=== PATIENT | female | born 1995 | race Caucasian/White ===

== ENCOUNTER → 2017-03-20 | Outpatient (CLI) | payer BC ==
[~2017-03-20] MED LIST: CLARITHROMYCIN; CLIN300C3 PO; PRD20T PO; SOLODYN; [UNRECOGNIZED DRUG - OTHER]
--- NOTE | 2017-03-20 10:10 | Diagnostic Imaging Report ---
PROCEDURE: US Gallbladder. TECHNIQUE: Multiple Real-time grayscale images were obtained over the right upper quadrant in various projections. INDICATION: Right upper quadrant pain. COMPARISON: None. FINDINGS: The liver appears unremarkable. There is no biliary dilatation. The common bile duct measures about 4 mm. The gallbladder appears unremarkable. The pancreas is not well seen. The right kidney measures 10 cm in length and appears normal. There is no ascites or sonographic Goss's sign. IMPRESSION: No acute abnormality is seen. The pancreas is not well visualized. Dictated by: Dictated on workstation # [id number]
--- NOTE | 2017-03-20 10:12 | Diagnostic Imaging Report ---
PROCEDURE: US Thyroid. TECHNIQUE: Multiple Real-time grayscale images were obtained of the thyroid in various projections. INDICATION: Thyromegaly. COMPARISON: None. FINDINGS: The right lobe measures 4.3 cm x 1.2 cm x 1.6 cm and the left lobe measures 3.6 cm x 1.3 cm x 1.5 cm. The thyroid gland appears fairly homogenous. No focal nodules are seen. IMPRESSION: Unremarkable thyroid sonogram. Dictated by: Dictated on workstation # [id number]
== END ==
LOC: RAD 08:14
PROVIDERS: ATTEND Nurse Practitioner Family
DX: E01.0 Iodine-deficiency related diffuse (endemic) goiter (principal); R10.11 Right upper quadrant pain
CPT/HCPCS: 76536; 76705

== ENCOUNTER → 2017-04-04 | Outpatient (CLI) | payer BC ==
[~2017-04-04] MED LIST changes: +CATHETER FLUSH 10 ML SYR IV PRN
--- NOTE | 2017-04-04 15:00 | Diagnostic Imaging Report ---
EXAMINATION: HIDA with EF measurements Indication: Abdominal pain TECHNIQUE: After the intravenous administration of 5.4 mCi of Tc 99m Choletec, imaging over the abdomen was obtained. This was followed by administration of Ensure orally to stimulate intrinsic CCK secretion, followed by continued imaging with ejection fraction measured. FINDINGS: There is homogeneous uptake in the liver with prompt bile duct and gallbladder filling seen. Bowel activity is seen at 65 minutes. Based on further imaging and gallbladder area of interest activity measurements after the administration of Ensure, the gallbladder ejection fraction is estimated at 57%. IMPRESSION: 1. Normal hepatobiliary uptake and Gallbladder filling. 2. Normal gallbladder ejection fraction. Dictated by: Dictated on workstation # [id number]
== END ==
LOC: CARD 12:02
PROVIDERS: ATTEND Nurse Practitioner Family
DX: R10.11 Right upper quadrant pain (principal)
CPT/HCPCS: 78227

== ENCOUNTER 2018-10-07 17:37 | Emergency (ER) | payer BC ==
[~2018-10-07] VITALS: Ht 162.6 cm; Wt 111.1 kg
[~2018-10-07 17:37] MED LIST changes: -CATHETER FLUSH 10 ML SYR IV PRN
--- OUTSIDE RECORDS SUMMARY | 2018-10-07 17:43 | XMS REPORT | Clinical Summary ---
Author Author [facility] Organization [facility] Address Unknown Phone Unavailable Care Team Providers Care Biomass Production Manager Name Role Phone Unverified, Unverified Md PCP Unavailable Source Comments Some departments are not documenting in the electronic medical record. If you d o not see the information that you expected, contact Release of Information in Count includes the [facility] Information Management department at [phone] for further assistan ce in locating additional records.[facility] Allergies Not on File Medications Not on file Active Problems Not on file Social History Date Tobacco Use Types Packs/Day Years Used Never Assessed Sex Assigned at Date Recorded Not on file Industry Job Start Date Occupation Not on file Not on file Not on file Travel End Travel History Travel Start No recent travel history available. Last Filed Vital Signs Not on file Plan of Treatment Health Maintenance Due Date Last Done Comments PHYSICAL (COMPREHENSIVE) 2004 EXAM HIV SCREENING 2012 HPV VACCINES (1 - Female 2012 3-dose series) DTAP/TDAP VACCINES (1 - 08/10/2015 Tdap) CERVICAL CANCER SCREENING 2018 INFLUENZA VACCINE 01/20/2019 MENINGOCOCCAL VACCINE Aged Out No longer eligible based (Odalys ENRIQUEZ) on patient's age to complete this topic Results Not on filefrom Last 3 Months
--- OUTSIDE RECORDS SUMMARY | 2018-10-07 17:43 | XMS REPORT | Continuity of Care Document ---
Author Organization Unknown Address Unknown Allergies Active Description Code Type Severity Reaction Onset Reported/Identified Relationship to Patient Clinical Status Yes No Known Drug Allergies [id number] Drug Allergy Unknown N/A 03/18/2007 Medications There is no data. Problems Date Dx Coded Attending Type Code Diagnosis Diagnosed By 04/07/2010 Ot 078.12 PLANTAR WART 09/25/2010 Ot 842.10 SPRAIN OF HAND NOS 09/25/2010 Ot 959.5 FINGER INJURY NOS 09/25/2010 Ot E000.8 OTHER EXTERNAL CAUSE STATUS 09/25/2010 Ot E007.3 ACTIVITIES INVOLVING BASEBALL 09/25/2010 Ot E849.4 ACCID IN RECREATION AREA 09/25/2010 Ot E917.0 STRUCK IN SPORTS 03/14/2013 NARCISA LEAL MD Ot 786.09 RESPIRATORY ABNORM NEC 03/14/2013 NARCISA LEAL MD Ot 786.50 CHEST PAIN NOS 03/14/2013 NARCISA LEAL MD Ot E849.0 ACCIDENT IN HOME 03/14/2013 NARCISA LEAL MD Ot E930.8 ADV EFF ANTIBIOTICS NEC 04/02/2014 SARBJIT FRIED MD Ot 784.0 04/26/2014 SARBJIT FRIED MD Ot 784.0 03/04/2015 Ot 784.0 03/04/2015 Ot 959.7 03/04/2015 Ot E000.8 03/04/2015 Ot E007.9 03/04/2015 Ot E928.9 03/04/2015 SARBJIT FRIED MD Ot 625.3 03/04/2015 SARBJIT FRIED MD Ot 625.3 03/04/2015 V[place] PEREIRA Ot 789.00 03/04/2015 SARBJIT FRIED MD Ot 796.2 03/04/2015 SARBJIT FRIED MD Ot 784.0 03/29/2015 Ot 784.0 03/29/2015 Ot 959.7 03/29/2015 Ot E000.8 03/29/2015 Ot E007.9 03/29/2015 Ot E928.9 03/29/2015 SARBJIT FRIED MD Ot 625.3 03/29/2015 SARBJIT FRIED MD Ot 625.3 03/29/2015 [place] PEREIRAP Ot 789.00 03/29/2015 SARBJIT FRIED MD Ot 796.2 03/29/2015 SARBJIT FRIED MD Ot 784.0 06/09/2015 SRABJIT FRIED MD Ot E28.2 06/20/2015 SARBJIT FRIED MD Ot E28.2 07/01/2015 Ot 959.7 07/01/2015 Ot E000.8 07/01/2015 Ot E007.9 07/01/2015 Ot E928.9 07/01/2015 SARBJIT FRIED MD Ot 625.3 07/01/2015 SARBJIT FRIED MD Ot 625.3 07/01/2015 V[place] PEREIRAP Ot 789.00 07/01/2015 SARBJIT FRIED MD Ot 796.2 07/01/2015 SARBJIT FRIED MD Ot 784.0 07/01/2015 SARBJIT FRIED MD Ot E28.2 08/08/2015 Ot 959.7 LOWER LEG INJURY NOS 08/08/2015 Ot E000.8 OTHER EXTERNAL CAUSE STATUS 08/08/2015 Ot E007.9 OTH ACT INVG OTH SPORTS ATHLETES PLAYE 08/08/2015 Ot E928.9 ACCIDENT NOS 08/08/2015 SARBJIT FRIED MD Ot 625.3 DYSMENORRHEA 08/08/2015 SARBJIT FRIED MD Ot 625.3 DYSMENORRHEA 08/08/2015 V[place] PEREIRAP Ot 789.00 ABDOMINAL PAIN, UNSPECIFIED SITE 08/08/2015 SARBJIT FRIED MD Ot 796.2 ELEV BL PRES W/O HYPERTN 08/08/2015 SARBJIT FRIED MD Ot 784.0 HEADACHE 08/08/2015 SARBJIT FRIED MD Ot E28.2 POLYCYSTIC OVARIAN SYNDROME 10/10/2015 Ot 959.7 LOWER LEG INJURY NOS 10/10/2015 Ot E000.8 OTHER EXTERNAL CAUSE STATUS 10/10/2015 Ot E007.9 OTH ACT INVG OTH SPORTS ATHLETES PLAYE 10/10/2015 Ot E928.9 ACCIDENT NOS 10/10/2015 SARBJIT FRIED MD Ot 625.3 DYSMENORRHEA 10/10/2015 SARBJIT FRIED MD Ot 625.3 DYSMENORRHEA 10/10/2015 SIAVRIGINIA Veloz K GRINDING MACHINE OPERATOR Ot 789.00 ABDOMINAL PAIN, UNSPECIFIED SITE 10/10/2015 SARBJIT FRIED MD Ot 796.2 ELEV BL PRES W/O HYPERTN 10/10/2015 SARBJIT FRIED MD Ot 784.0 HEADACHE 10/10/2015 SARBJIT FRIED MD Ot E28.2 POLYCYSTIC OVARIAN SYNDROME 01/24/2016 Ot 959.7 LOWER LEG INJURY NOS 01/24/2016 Ot E000.8 OTHER EXTERNAL CAUSE STATUS 01/24/2016 Ot E007.9 OTH ACT INVG OTH SPORTS ATHLETES PLAYE 01/24/2016 Ot E928.9 ACCIDENT NOS 01/24/2016 SARBJIT FRIED MD Ot 625.3 DYSMENORRHEA 01/24/2016 SARBJIT FRIED MD Ot 625.3 DYSMENORRHEA 01/24/2016 SIAVIRGINIA Veloz K GRINDING MACHINE OPERATOR Ot 789.00 ABDOMINAL PAIN, UNSPECIFIED SITE 01/24/2016 SARBJIT FRIED MD Ot 796.2 ELEV BL PRES W/O HYPERTN 01/24/2016 SARBJIT FRIED MD Ot 784.0 HEADACHE 01/24/2016 SARBJIT FRIED MD Ot E28.2 POLYCYSTIC OVARIAN SYNDROME 02/21/2016 Ot 486 06/20/2016 Ot 486 06/26/2016 Ot 959.7 LOWER LEG INJURY NOS 06/26/2016 Ot E000.8 OTHER EXTERNAL CAUSE STATUS 06/26/2016 Ot E007.9 OTH ACT INVG OTH SPORTS ATHLETES PLAYE 06/26/2016 Ot E928.9 ACCIDENT NOS 06/26/2016 SARBJIT FRIED MD Ot 625.3 DYSMENORRHEA 06/26/2016 SARBJIT FRIED MD Ot 625.3 DYSMENORRHEA 06/26/2016 SIAVIRGINIA Veloz K GRINDING MACHINE OPERATOR Ot 789.00 ABDOMINAL PAIN, UNSPECIFIED SITE 06/26/2016 SARBJIT FRIED MD Ot 796.2 ELEV BL PRES W/O HYPERTN 06/26/2016 SARBJIT FRIED MD Ot 784.0 HEADACHE 06/26/2016 SARBJIT FRIED MD Ot E28.2 POLYCYSTIC OVARIAN SYNDROME 06/26/2016 Ot 959.7 LOWER LEG INJURY NOS 06/26/2016 Ot E000.8 OTHER EXTERNAL CAUSE STATUS 06/26/2016 Ot E007.9 OTH ACT INVG [employer] SPORTS ATHLETES PLAYE 06/26/2016 Ot E928.9 ACCIDENT NOS 06/26/2016 SARBJIT FRIED MD Ot 625.3 DYSMENORRHEA 06/26/2016 SARBJIT FRIED MD Ot 625.3 DYSMENORRHEA 06/26/2016 SIAVIRGINIA Veloz K GRINDING MACHINE OPERATOR Ot 789.00 ABDOMINAL PAIN, UNSPECIFIED SITE 06/26/2016 SARBJIT FRIED MD Ot 796.2 ELEV BL PRES W/O HYPERTN 06/26/2016 SARBJIT FRIED MD Ot 784.0 HEADACHE 06/26/2016 SARBJIT FRIED MD Ot E28.2 POLYCYSTIC OVARIAN SYNDROME 07/21/2016 Ot 959.7 LOWER LEG INJURY NOS 07/21/2016 Ot E000.8 OTHER EXTERNAL CAUSE STATUS 07/21/2016 Ot E007.9 OTH ACT INVG [employer] SPORTS ATHLETES PLAYE 07/21/2016 Ot E928.9 ACCIDENT NOS 07/21/2016 SARBJIT FRIED MD Ot 625.3 DYSMENORRHEA 07/21/2016 SARBJIT FRIED MD Ot 625.3 DYSMENORRHEA 07/21/2016 SIAVIRGINIA Veloz K GRINDING MACHINE OPERATOR Ot 789.00 ABDOMINAL PAIN, UNSPECIFIED SITE 07/21/2016 SARBJIT FRIED MD Ot 796.2 ELEV BL PRES W/O HYPERTN 07/21/2016 SARBJIT FRIED MD Ot 784.0 HEADACHE 07/21/2016 SARBJIT FRIED MD Ot E28.2 POLYCYSTIC OVARIAN SYNDROME 10/03/2016 SARBJIT FRIED MD Ot E28.2 POLYCYSTIC OVARIAN SYNDROME 10/09/2016 Ot 959.7 LOWER LEG INJURY NOS 10/09/2016 Ot E000.8 OTHER EXTERNAL CAUSE STATUS 10/09/2016 Ot E007.9 OTH ACT INVG OT SPORTS ATHLETES PLAYE 10/09/2016 Ot E928.9 ACCIDENT NOS 10/09/2016 SARBJIT FRIED MD Ot 625.3 DYSMENORRHEA 10/09/2016 SARBJIT FRIED MD Ot 625.3 DYSMENORRHEA 10/09/2016 SIAVIRGINIA Veloz GRINDING MACHINE OPERATOR Ot 789.00 ABDOMINAL PAIN, UNSPECIFIED SITE 10/09/2016 SARBJIT FRIED MD Ot 796.2 ELEV BL PRES W/O HYPERTN 10/09/2016 SARBJIT FRIED MD Ot 784.0 HEADACHE 10/09/2016 SARBJIT FRIED MD Ot E28.2 POLYCYSTIC OVARIAN SYNDROME 10/09/2016 Ot 959.7 LOWER LEG INJURY NOS 10/09/2016 Ot E000.8 OTHER EXTERNAL CAUSE STATUS 10/09/2016 Ot E007.9 OTH ACT INVG OT SPORTS ATHLETES PLAYE 10/09/2016 Ot E928.9 ACCIDENT NOS 10/09/2016 SARBJIT FRIED MD Ot 625.3 DYSMENORRHEA 10/09/2016 SARBJIT FRIED MD Ot 625.3 DYSMENORRHEA 10/09/2016 VIRGINIA PEREIRA GRINDING MACHINE OPERATOR Ot 789.00 ABDOMINAL PAIN, UNSPECIFIED SITE 10/09/2016 SARBJIT FRIED MD Ot 796.2 ELEV BL PRES W/O HYPERTN 10/09/2016 SARBJIT FRIED MD Ot 784.0 HEADACHE 10/09/2016 SARBJIT FRIED MD Ot E28.2 POLYCYSTIC OVARIAN SYNDROME 12/13/2016 SARBJIT FRIED MD Ot E28.2 POLYCYSTIC OVARIAN SYNDROME 12/19/2016 SARBJIT FRIED MD Ot E28.2 POLYCYSTIC OVARIAN SYNDROME 01/23/2017 Ot 959.7 LOWER LEG INJURY NOS 01/23/2017 Ot E000.8 OTHER EXTERNAL CAUSE STATUS 01/23/2017 Ot E007.9 OTH ACT INVG OTH SPORTS ATHLETES PLAYE 01/23/2017 Ot E928.9 ACCIDENT NOS 01/23/2017 SARBJIT FRIED MD Ot 625.3 DYSMENORRHEA 01/23/2017 SARBJIT FRIED MD Ot 625.3 DYSMENORRHEA 01/23/2017 VIRGINIA PEREIRA K GRINDING MACHINE OPERATOR Ot 789.00 ABDOMINAL PAIN, UNSPECIFIED SITE 01/23/2017 SARBJIT FRIED MD Ot 796.2 ELEV BL PRES W/O HYPERTN 01/23/2017 SARBJIT FRIED MD Ot 784.0 HEADACHE 01/23/2017 SARBJIT FRIED MD Ot E28.2 POLYCYSTIC OVARIAN SYNDROME 03/20/2017 SARBJIT FRIED MD Ot E28.2 POLYCYSTIC OVARIAN SYNDROME 03/25/2017 SARBJIT FRIED MD Ot E28.2 POLYCYSTIC OVARIAN SYNDROME 03/25/2017 KUMAR, GUILHERME L GRINDING MACHINE OPERATOR Ot E01.0 IODINE-DEFICIENCY RELATED DIFFUSE (ENDEM 03/25/2017 KUMAR, GUILHERME L GRINDING MACHINE OPERATOR Ot R10.11 RIGHT UPPER QUADRANT PAIN 04/05/2017 KUMAR, GUILHERME L GRINDING MACHINE OPERATOR Ot E01.0 IODINE-DEFICIENCY RELATED DIFFUSE (ENDEM 04/05/2017 KUMAR, GUILHERME L GRINDING MACHINE OPERATOR Ot R10.11 RIGHT UPPER QUADRANT PAIN 04/07/2017 KUMAR, GUILHERME L GRINDING MACHINE OPERATOR Ot R10.11 RIGHT UPPER QUADRANT PAIN 04/10/2017 KUMAR, GUILHERME L GRINDING MACHINE OPERATOR Ot R10.11 RIGHT UPPER QUADRANT PAIN 04/18/2017 KUMAR, GUILHERME L GRINDING MACHINE OPERATOR Ot R10.11 RIGHT UPPER QUADRANT PAIN 04/22/2017 Ot 486 07/06/2017 SARBJIT FRIED MD Ot 625.3 DYSMENORRHEA 07/06/2017 SARBJIT FRIED MD Ot 625.3 DYSMENORRHEA 07/06/2017 VIRGINIA PEREIRA K GRINDING MACHINE OPERATOR Ot 789.00 ABDOMINAL PAIN, UNSPECIFIED SITE 07/06/2017 SARBJIT FRIED MD Ot 796.2 ELEV BL PRES W/O HYPERTN 07/06/2017 SARBJIT FRIED MD Ot 784.0 HEADACHE 07/06/2017 SARBJIT FRIED MD Ot E28.2 POLYCYSTIC OVARIAN SYNDROME 09/20/2017 Ot 486 10/07/2017 SARBJIT FRIED MD Ot 625.3 DYSMENORRHEA 10/07/2017 SARBJIT FIRED MD Ot 625.3 DYSMENORRHEA 10/07/2017 SIAM, VIRGINIA K GRINDING MACHINE OPERATOR Ot 789.00 ABDOMINAL PAIN, UNSPECIFIED SITE 10/07/2017 SARBJIT FIRED MD Ot 796.2 ELEV BL PRES W/O HYPERTN 10/07/2017 SARBJIT FRIED MD Ot 784.0 HEADACHE 10/07/2017 SARBJIT FRIED MD Ot E28.2 POLYCYSTIC OVARIAN SYNDROME 10/15/2017 SARBJIT FRIED MD Ot 625.3 DYSMENORRHEA 10/15/2017 SARBJIT FRIED MD Ot 625.3 DYSMENORRHEA 10/15/2017 SIAM, VIRGINIA K GRINDING MACHINE OPERATOR Ot 789.00 ABDOMINAL PAIN, UNSPECIFIED SITE 10/15/2017 SARBJIT FRIED MD Ot 796.2 ELEV BL PRES W/O HYPERTN 10/15/2017 SARBJIT FRIED MD Ot 784.0 HEADACHE 10/15/2017 SARBJIT FRIED MD Ot E28.2 POLYCYSTIC OVARIAN SYNDROME 08/26/2018 SIAM, VIRGINIA K GRINDING MACHINE OPERATOR Ot 789.00 ABDOMINAL PAIN, UNSPECIFIED SITE 08/26/2018 SARBJIT FRIED MD Ot 796.2 ELEV BL PRES W/O HYPERTN 08/26/2018 SARBJIT FRIED MD Ot 784.0 HEADACHE 08/26/2018 SARBJIT FRIED MD Ot E28.2 POLYCYSTIC OVARIAN SYNDROME Procedures There is no data. Results There is no data. Encounters ACCT No. Visit Date/Time Discharge Status Pt. Type Provider Facility Loc./Unit Complaint [id number] 04/04/2017 12:02:00 04/04/2017 23:59:59 [facility] Outpatient GUILHERME KUMAR GRINDING MACHINE OPERATOR [facility] CARD PUQ PAIN [id number] 03/20/2017 08:14:00 03/20/2017 23:59:59 C[facility] Outpatient GUILHERME KUMAR GRINDING MACHINE OPERATOR [facility] RAD THYROMEGALY,RUQ PAIN [id number] 06/02/2015 10:21:00 06/02/2015 23:59:59 CLS Outpatient SARBJIT FRIED MD [facility] RAD POLYCYSTIC OVARIES [id number] 05/26/2015 10:27:00 05/26/2015 23:59:59 CLS Outpatient SARBJIT FRIED MD [facility] LAB POLYCYSTIC OVA [id number] 04/01/2014 12:27:00 04/01/2014 23:59:59 CLS Outpatient SARBJIT FRIED MD [facility] RAD SEVERE HEADACHES [id number] 12/03/2013 07:00:00 12/03/2013 23:59:59 CLS Outpatient SARBJIT FRIED MD [facility] CARD BORDERLINE HIGH BLOOD PRESSURE [id number] 06/29/2013 14:42:00 06/29/2013 23:59:59 CLS Outpatient SIAMVIGRINIA K GRINDING MACHINE OPERATOR [facility] LAB ABD PAIN [id number] 03/14/2013 01:27:00 03/14/2013 02:30:00 DIS Emergency NARCISA LEAL MD [facility] ER CHEST PAIN,SOA [id number] 02/10/2013 10:30:00 02/10/2013 23:59:59 CLS Outpatient SARBJIT FRIED MD [facility] RAD DYSMENNOREHA [id number] 02/09/2013 15:47:00 02/09/2013 23:59:59 CLS Outpatient SARBJIT FRIED MD [facility] LAB DISMENORRHEA [id number] 03/04/2015 06:11:00 Document Registration [id number] 08/21/2011 10:42:00 Document Registration [id number] 09/25/2010 21:43:00 Document Registration [id number] 04/07/2010 06:45:00 Document Registration [id number] 01/04/2010 17:24:00 Document Registration [id number] 03/17/2007 09:00:00 Document Registration
--- OUTSIDE RECORDS SUMMARY | 2018-10-07 17:43 | XMS REPORT | Encounter Summary ---
Author Author [facility] Organization [facility] Address Unknown Phone Unavailable Care Team Providers Care Mobile Nurse Name Role Phone Unverified, Unverified PCP Unavailable Encounter Details Care Team Description Date Type Department Marcy Sauceda MD [address] [place] [id number] [phone] 12/30/2007 [facility] [address] [address] Social History Date Tobacco Use Types Packs/Day Years Used Never Assessed Sex Assigned at Date Recorded Not on file Industry Job Start Date Occupation Not on file Not on file Not on file Travel End Travel History Travel Start No recent travel history available. 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 IGG/IGM 12:16 PM CDT THYROGLOBULIN AB 12/30/2007 Idiopathic Urticaria 12:16 PM CDT CARDIOLIPIN AB IGG/IGM 12/30/2007 Idiopathic Urticaria 12:16 PM CDT ANTI-THYROPEROXIDASE 12/30/2007 Idiopathic Urticaria (MICROSOMAL)AB 12:16 PM CDT DILUTE [place] VIPER 12/30/2007 Idiopathic Urticaria VENOM 12:16 PM CDT COMPLEMENT, TOTAL (CH50) 12/30/2007 Idiopathic Urticaria 12:16 PM CDT C4 COMPLEMENT 4 12/30/2007 Idiopathic Urticaria 12:16 PM CDT ALT (SGPT) 12/30/2007 Idiopathic Urticaria 12:16 PM CDT THYROID STIMULATING 12/30/2007 Idiopathic Urticaria HORMONE-TSH 12:16 PM CDT FREE T4 (FREE THYROXINE) 12/30/2007 Idiopathic Urticaria ONLY 12:16 PM CDT documented in this encounter Results * THYROID STIMULATING HORMONE-TSH (12/30/2007 12:16 PM CDT) TSH 2.467 0.35 - 5.00 MCU/ML [facility] RESULTS Specimen Performing Organization Address [facility] Phone Number [facility] RESULTS * MYCOPLASMA PNEUMONIA IGG/IGM (12/30/2007 12:16 PM CDT) M Pneumo IgG 4.80 [facility] RESULTS Comment: Reference range: <=0.90 Unit: Index [facility], [address] [place], [place] [id number] M Pneumo IgM 3.58 (H) [facility] RESULTS Comment: Reference range: <=0.90 Unit: Index Results suggest recent infection but should be interpreted in the context of the clinical presentation. [facility], [address] [place] [id number] Specimen Performing Organization Address [facility] Phone Number [facility] RESULTS * FREE T4 (FREE THYROXINE) ONLY (12/30/2007 12:16 PM CDT) T4-Free 0.9Comment: NOTE NEW REFERENCE 0.6 - 1.6 NG/DL [facility] RESULTS RANGES Specimen Performing Organization Address City/[facility] Phone Number [facility] RESULTS * DILUTE [place] VIPER VENOM (12/30/2007 12:16 PM CDT) Dilute [place] 1.6 <1.8 RATIO [facility] RESULTS Viper Venom DRVVT Comment Dilute [place] viper venom [facility] RESULTS time ratio is negative for lupus anticoagulant.The hexagonal phospholipid neutralization test should also be performed before excluding lupus anticoagulant (Call [phone] to request further testing). REI GILMAN MD Specimen Performing Organization Address City/[facility] Phone Number [facility] RESULTS * COMPLEMENT, TOTAL (CH50) (12/30/2007 12:16 PM CDT) Complement CH50 >147 (H) 57 - 147 AU [facility] RESULTS Specimen Performing Organization Address [facility] Phone Number LAB RESULTS * C4 COMPLEMENT 4 (12/30/2007 12:16 PM CDT) Complemnt C4 24.6 16 - 47 MG/DL [facility] RESULTS Specimen Performing Organization Address [facility] Number [facility] RESULTS * THYROGLOBULIN AB (12/30/2007 12:16 PM CDT) Thyroglobulin <20.0 0 - 40 IU/ML [facility] RESULTS Ab Specimen Performing Organization Address [facility] Phone Number [facility] RESULTS * ANTI-THYROPEROXIDASE (MICROSOMAL)AB (12/30/2007 12:16 PM CDT) Microsomal AB, <10.0 0 - 35 IU/ML [facility] RESULTS TPO Specimen Performing Organization Address [facility] Number [facility] RESULTS * ALT (SGPT) (12/30/2007 12:16 PM CDT) ALT (SGPT) 22 7 - 56 U/L [facility] RESULTS Specimen Performing Organization Address [facility] Phone Number [facility] RESULTS * CARDIOLIPIN AB IGG/IGM (12/30/2007 12:16 PM CDT) Cardiolipin, 9.7 <15 GPL/ML [facility] RESULTS IgG Cardiolipin, 11.4 <12.5 MPL/ML [facility] RESULTS IgM Specimen Performing Organization Address [facility] Phone Number [facility] RESULTS documented in this encounter Visit Diagnoses Diagnosis Idiopathic urticaria documented in this encounter
[2018-10-07] MEDS ORDERED: HYDR-700 PO (18:35)
[2018-10-07] MEDS ORDERED: METH4TAB PO (18:35)
--- NOTE | 2018-10-07 18:35 | ED General ---
General Chief Complaint: Allergic Reaction Stated Complaint: RASH Nursing Triage Note: PT AMB TO TRIAGE WITH COMPLAINT OF POSSIBLE ALLERGIC REACTION TO MOLD. PT STATES SHE WAS CLEANING SOMETHING AT WORK ADN SPRAYED MOLD IN HER FACE. STATES HER HANDS ARE RED AND SWOLLEN. Nursing Sepsis Screen: No Definite Risk Allergies and Home Medications Allergies Coded Allergies: No Known Drug Allergies (Verified , 03/18/07) Home Medications Clindamycin Hcl 300 Mg Capsule, 1 EACH PO Q8HR, (Reported) Prednisone 20 Mg Tab, 20 MG PO BID Prescribed by: NARCISA LEAL on 03/14/13 0221 Past Rtcyebh-Hlcplb-Lujrqu Hx Patient Social History Alcohol Use: Occasionally Uses Recreational Drug Use: Yes Drug of Choice: MARIJUANA Smoking Status: Never a Smoker Recent Foreign Travel: No Contact w/Someone Who Travel: No Recent Infectious Disease Expo: No Recent Hopitalizations: No Immunizations Up To Date Tetanus Booster (TDap): Unknown PED Vaccines UTD: Yes Past Medical History Surgeries: Yes (MYRINGOTOMY,T&A) Adenoidectomy, Tonsillectomy Respiratory: No Cardiac: No Neurological: No Reproductive Disorders: No Female Reproductive Disorders: Polycystic Ovarian Dis Sexually Transmitted Disease: No Genitourinary: No Gastrointestinal: No Musculoskeletal: No Endocrine: No Psychosocial: Yes Anxiety, Depression Blood Disorders: No Physical Exam Vital Signs Vital Signs - First Documented 10/07/18 17:56 Temp 98.0 Pulse 99 Resp 20 B/P (MAP) 140/82 (101) Pulse Ox 98 O2 Delivery Room Air Capillary Refill : Less Than 3 Seconds Height, Weight, BMI Height: 5'4.00" Weight: 245lbs. oz. 111.438624fr; BMI Method:Stated Progress/Results/Core Measures Suspected Sepsis Recent Fever Within 48 Hours: No Infection Criteria Present: None New/Unexplained Altered Menta: No Sepsis Screen: No Definite Risk SIRS Temperature:98.0 Pulse: 99 Respiratory Rate: 20 Blood Pressure 140 /82 Mean: 101 Results/Orders Vital Signs/I&O 10/07/18 17:56 Temp 98.0 Pulse 99 Resp 20 B/P (MAP) 140/82 (101) Pulse Ox 98 O2 Delivery Room Air Capillary Refill : Less Than 3 Seconds Blood Pressure Mean: 101 Departure Impression Primary Impression: Pruritus Disposition: 01 HOME, SELF-CARE Condition: Stable Departure-Patient Inst. Referrals: JACOB KUMAR DO (PCP) Primary Care Physician GUILHERME KUMAR, GORDON (Family) Primary Care Physician Patient Instructions: Itchy Skin Add. Discharge Instructions: CONTINUE YOUR REGULAR MEDICATIONS PRESCRIBED FOLLOW UP WITH YOUR DR THIS WEEK FOR FURTHER CARE All discharge instructions reviewed with patient and/or family. Voiced understanding. Scripts Methylprednisolone (Medrol) 4 Mg Tab.ds.pk 4 MG PO UD, #1 PKG Prov: HUBERT WOOD DO 10/07/18 Hydroxyzine HCl (Hydroxyzine HCl) 25 Mg Tablet 25-50 MG PO Q6H for Itching, #20 TAB Prov: HUBERT WOOD DO 10/07/18 HUBERT WOOD DO Oct 07, 2018 18:35
[2018-10-07 18:43] VITALS: BP 140/82
== END 2018-10-07 18:43 | disposition home or self-care (01) ==
LOC: EDUNIT# 17:37 → ER 17:39
DX: L29.9 Pruritus, unspecified (principal); F41.9 Anxiety disorder, unspecified; F32.9 Major depressive disorder, single episode, unspecified; Z79.52 Long term (current) use of systemic steroids; Z90.89 Acquired absence of other organs; Z96.22 Myringotomy tube(s) status; Z87.448 Personal history of other diseases of urinary system
CPT/HCPCS: 99282

== ENCOUNTER 2021-07-15 11:11 | Emergency (ER) | payer BC ==
[~2021-07-15] VITALS: Ht 162.5 cm; Wt 125.0 kg
[~2021-07-15 11:11] MED LIST changes: +HYDR-700 PO; +METH4TAB PO
--- NOTE | 2021-07-15 12:04 | ED GI ---
General Stated Complaint: N/V - DIARRHEA - FEVER - HEADACHE Source of Information: Patient, Family Exam Limitations: No Limitations (FRANCIA BRAGG APRN) History of Present Illness Date Seen by Provider: Jul 15, 2021 Time Seen by Provider: 12:03 Initial Comments To ER by private vehicle accompanied by mother. She has had nausea vomiting diarrhea since this morning. She has a headache. No fever no cough no runny nose. No abdominal pain. No dysuria. She believes she may have alcohol poisoning as she drank a lot of alcohol last night. Timing/Duration: 4-6 Hours Severity/Quality: Moderate Radiation: No Radiation Activities at Onset: None (FRANCIA BRAGG APRN) Allergies and Home Medications Allergies Coded Allergies: No Known Drug Allergies (Verified , 03/18/07) Patient Home Medication List Home Medication List Reviewed: Yes (FRANCIA BRAGG APRN) Clindamycin Hcl (Cleocin Hcl) 300 Mg Capsule, 1 EACH PO Q8HR, (Reported) Entered as Reported by: MANSOOR RUIZ on 03/14/13 0137 Hydroxyzine HCl (Hydroxyzine HCl) 25 Mg Tablet, 25-50 MG PO Q6H Prescribed by: HUBERT WOOD on 10/07/18 183 Methylprednisolone (Medrol) 4 Mg Tab.ds.pk, 4 MG PO UD Prescribed by: HUBERT WOOD on 10/07/18 183 Ondansetron (Ondansetron Odt) 8 Mg Tab.rapdis, 8 MG PO Q6H PRN for NAUSEA/VOMITING Prescribed by: FRANCIA BRAGG on 07/15/21 1228 Prednisone (Prednisone) 20 Mg Tab, 20 MG PO BID Prescribed by: NARCISA LEAL on 03/14/13 0221 Spironolactone (Spironolactone) 100 Mg Tablet, 100 MG PO BID Prescribed by: FRANCIA BRAGG on 07/15/21 1324 [Clarithromycin] , (Reported) Entered as Reported by: BURT SIM on 03/18/07 1559 [Hydrocodone By6258/5] , (Reported) Entered as Reported by: BURT SIM on 03/18/07 1601 [Solodyn] , (Reported) Entered as Reported by: WILDER ASHER on 09/25/10 215 Review of Systems Review of Systems Constitutional: see HPI EENTM: No Symptoms Reported Respiratory: No Symptoms Reported Cardiovascular: No Symptoms Reported Gastrointestinal: See HPI, Diarrhea, Nausea Genitourinary: No Symptoms Reported Musculoskeletal: no symptoms reported Skin: no symptoms reported Psychiatric/Neurological: No Symptoms Reported Endocrine: No Symptoms Reported Hematologic/Lymphatic: No Symptoms Reported (FRANCIA BRAGG APRN) Past Zlcnuty-Krtdha-Iqycfd Hx Immunizations Up To Date Tetanus Booster (TDap): Unknown PED Vaccines UTD: Yes (FRANCIA BRAGG APRN) Seasonal Allergies Seasonal Allergies: Yes (FRANCIA BRAGG APRN) Past Medical History Surgeries: Yes (MYRINGOTOMY,T&A) Adenoidectomy, Ear Surgery, Tonsillectomy Respiratory: No Cardiac: No Neurological: No Reproductive Disorders: No Female Reproductive Disorders: Polycystic Ovarian Dis Sexually Transmitted Disease: No Genitourinary: No Gastrointestinal: No Musculoskeletal: No Endocrine: No Psychosocial: Yes ADD/ADHD, Anxiety, Depression Blood Disorders: No (FRANCIA BRAGG APRN) Physical Exam Vital Signs Vital Signs - First Documented 07/15/21 11:54 Pulse 94 Resp 18 B/P (MAP) 149/120 (130) Pulse Ox 96 O2 Delivery Room Air (BRIAN INGRAM MD) Vital Signs Capillary Refill : (FRANCIA BRAGG APRN) Height/Weight/BMI Height: 5'4.00" Weight: 245lbs. oz. [id number]; BMI Method:Stated General Appearance: WD/WN, no apparent distress, obese, other (Anxious but in no distress. Very pleasant) HEENT: PERRL/EOMI, normal ENT inspection Neck: non-tender, full range of motion Respiratory: no respiratory distress, no accessory muscle use Cardiovascular: regular rate, rhythm, no murmur Gastrointestinal: normal bowel sounds, non tender, soft Extremities: normal range of motion, non-tender, normal inspection Neurologic/Psychiatric: alert, normal mood/affect, oriented x 3 Skin: normal color, warm/dry (FRANCIA BRAGG APRN) Progress/Results/Core Measures Results/Orders Lab Results Laboratory Tests Test 07/15/21 11:59 07/15/21 12:16 Range/Units White Blood Count 13.0 H 4.3-11.0 10^3/uL Red Blood Count 4.94 3.80-5.11 10^6/uL Hemoglobin 14.7 11.5-16.0 g/dL Hematocrit 45 35-52 % Mean Corpuscular Volume 90 80-99 fL Mean Corpuscular Hemoglobin 30 25-34 pg Mean Corpuscular Hemoglobin Concent 33 32-36 g/dL Red Cell Distribution Width 12.6 10.0-14.5 % Platelet Count 458 H 130-400 10^3/uL Mean Platelet Volume 9.2 9.0-12.2 fL Immature Granulocyte % (Auto) 1 % Neutrophils (%) (Auto) 80 H 42-75 % Lymphocytes (%) (Auto) 15 12-44 % Monocytes (%) (Auto) 4 0-12 % Eosinophils (%) (Auto) 0 0-10 % Basophils (%) (Auto) 1 0-10 % Neutrophils # (Auto) 10.4 H 1.8-7.8 10^3/uL Lymphocytes # (Auto) 1.9 1.0-4.0 10^3/uL Monocytes # (Auto) 0.5 0.0-1.0 10^3/uL Eosinophils # (Auto) 0.0 0.0-0.3 10^3/uL Basophils # (Auto) 0.1 0.0-0.1 10^3/uL Immature Granulocyte # (Auto) 0.1 0.0-0.1 10^3/uL Sodium Level 143 135-145 MMOL/L Potassium Level 4.0 3.6-5.0 MMOL/L Chloride Level 106 98-107 MMOL/L Carbon Dioxide Level 25 21-32 MMOL/L Anion Gap 12 5-14 MMOL/L Blood Urea Nitrogen 12 7-18 MG/DL Creatinine 0.80 0.60-1.30 MG/DL Estimat Glomerular Filtration Rate 106 BUN/Creatinine Ratio 15 Glucose Level 113 H 70-105 MG/DL Calcium Level 10.0 8.5-10.1 MG/DL Corrected Calcium 8.5-10.1 MG/DL Total Bilirubin 0.2 0.1-1.0 MG/DL Aspartate Amino Transf (AST/SGOT) 25 5-34 U/L Alanine Aminotransferase (ALT/SGPT) 34 0-55 U/L Alkaline Phosphatase 75 40-136 U/L Total Protein 7.7 6.4-8.2 GM/DL Albumin 4.6 H 3.2-4.5 GM/DL Lipase 19 8-78 U/L Serum Test, Qualitative NEGATIVE NEGATIVE Serum Alcohol < 10 <10 MG/DL Urine Color YELLOW Urine Clarity CLOUDY Urine pH 8.0 5-9 Urine Specific [place] 1.015 L 1.016-1.022 Urine Protein 1+ H NEGATIVE Urine Glucose (UA) NEGATIVE NEGATIVE Urine Ketones NEGATIVE NEGATIVE Urine Nitrite NEGATIVE NEGATIVE Urine Bilirubin NEGATIVE NEGATIVE Urine Urobilinogen 0.2 < = 1.0 MG/DL Urine Leukocyte Esterase NEGATIVE NEGATIVE Urine RBC (Auto) NEGATIVE NEGATIVE Urine RBC NONE /HPF Urine WBC RARE /HPF Urine Squamous Epithelial Cells 0-2 /HPF Urine Crystals NONE /LPF Urine Amorphous Sediment MOD ELDA PHOSPHATE H /LPF Urine Bacteria FEW H /HPF Urine Casts NONE /LPF Urine Mucus NEGATIVE /LPF Urine Culture Indicated NO (BRIAN INGRAM MD) Vital Signs/I&O 07/15/21 07/15/21 07/15/21 11:54 12:56 14:49 Pulse 94 88 80 Resp 18 18 18 B/P (MAP) 149/120 (130) 160/107 169/112 Pulse Ox 96 98 80 O2 Delivery Room Air Room Air Room Air (BRIAN NIGRAM MD) Departure Communication (Admissions) 1323-states that she is feeling better. Her mother is very worried that her oxygen saturation has dropped down to 95%. Mother is very worried about her blood pressure at 168/110 though the patient ran out of her spironolactone 100 mg twice daily tablets. (FRANCIA BRAGG APRN) Impression Primary Impression: Hangover Additional Impression: History of hypertension Disposition: HOME, SELF-CARE Condition: Stable Departure-Patient Inst. Decision time for Depature: 12:27 (FRANCIA BRAGG APRN) Referrals: NO,LOCAL PHYSICIAN (PCP/Family) Primary Care Physician Patient Instructions: No Instuctions Given Scripts Spironolactone (Spironolactone) 100 Mg Tablet 100 MG PO BID, #60 TAB Prov: FRANCIA BRAGG APRN 07/15/21 Ondansetron (Ondansetron Odt) 8 Mg Tab.rapdis 8 MG PO Q6H PRN for NAUSEA/VOMITING, #10 TAB Prov: FRANCIA BRAGG APRN 07/15/21 ATTENDING PHYSICIAN NOTE: I was physically present as attending physician in the emergency department during the care of this patient, but I was not directly involved in the decision making or delivery of care for this patient. (BRIAN INGRAM MD) FRANCIA BRAGG APRN Jul 15, 2021 12:04 BRIAN INGRAM MD Jul 16, 2021 13:39
[2021-07-15 12:08] LABS: BASOPHILS # (AUTO) 0.1 10^3/uL (0.0-0.1); BASOPHILS % (AUTO) 1 % (0-10); EOSINOPHILS % (AUTO) 0 % (0-10); HEMATOCRIT 45 % (35-52); HEMOGLOBIN 14.7 g/dL (11.5-16.0); LYMPHOCYTES # (AUTO) 1.9 10^3/uL (1.0-4.0); LYMPHOCYTES % (AUTO) 15 % (12-44); MEAN CORPUSCULAR HEMOGLOBIN 30 pg (25-34); MEAN CORPUSCULAR HGB CONC 33 g/dL (32-36); MEAN CORPUSCULAR VOLUME 90 fL (80-99); MEAN PLATELET VOLUME 9.2 fL (9.0-12.2); MONOCYTES # (AUTO) 0.5 10^3/uL (0.0-1.0); MONOCYTES % (AUTO) 4 % (0-12); NEUTROPHILS # (AUTO) 10.4 10^3/uL (1.8-7.8); NEUTROPHILS % (AUTO) 80 % (42-75); PLATELET COUNT 458 10^3/uL (130-400)
[2021-07-15 12:15] LABS: ALBUMIN 4.6 GM/DL (3.2-4.5); CHLORIDE 106 MMOL/L (98-107); SODIUM 143 MMOL/L (135-145)
[2021-07-15] MEDS ORDERED: LACTATED RINGERS 1,000 ML IV SCH (12:15)
[2021-07-15] MEDS ORDERED: LORazepam INJ 2 MG/ML (ATIVAN) VIAL IVP PRN (12:15)
[2021-07-15] MEDS ORDERED: ONDANSETRON 4 MG/2 ML (SDV) Z0FRAN IVP ONE (12:15)
[2021-07-15 12:17] LABS: GLUCOSE 113 MG/DL (70-105); TOTAL PROTEIN 7.7 GM/DL (6.4-8.2)
[2021-07-15 12:18] LABS: CARBON DIOXIDE 25 MMOL/L (21-32)
[2021-07-15 12:19] LABS: BILIRUBIN,TOTAL 0.2 MG/DL (0.1-1.0)
[2021-07-15 12:21] LABS: ALKALINE PHOSPHATASE 75 U/L (40-136); GFR ESTIMATED 106
[2021-07-15 12:22] LABS: BUN/CREATININE RATIO 15
[2021-07-15 12:24] LABS: ALANINE AMINOTRANSFERASE 34 U/L (0-55); LIPASE 19 U/L (8-78)
[2021-07-15 12:28] LABS: BILIRUBIN,URINE NEGATIVE (NEGATIVE); CLARITY,URINE CLOUDY; COLOR,URINE YELLOW; GLUCOSE, URINE (UA) NEGATIVE (NEGATIVE); KETONES,URINE NEGATIVE (NEGATIVE); LEUKOCYTE ESTERASE ,URINE NEGATIVE (NEGATIVE); NITRITE,URINE NEGATIVE (NEGATIVE); PROTEIN,URINE 1+ (NEGATIVE)
[2021-07-15] MEDS ORDERED: ONDA8TAB13 PO (12:28)
[2021-07-15 12:50] LABS: AMORPHOUS SEDIMENT,UR MOD AMOR PHOSPHATE /LPF; BACTERIA,URINE FEW /HPF; SQUAMOUS EPITHELIAL CELL,UR 0-2 /HPF; WBC,URINE RARE /HPF
[2021-07-15] MEDS ORDERED: PROMETHAZINE INJ 25 MG/ML (PHENERGAN) AMP IVP ONE (13:15)
[2021-07-15] MEDS ORDERED: SPIR100T4 PO (13:24)
[2021-07-15] MEDS ORDERED: KETOROLAC 30 MG/ML VIAL IVP ONE (13:30)
[2021-07-15 14:49] VITALS: BP 169/112
== END 2021-07-15 14:49 | disposition home or self-care (01) ==
LOC: EDUNIT# 11:11 → ER 11:13
DX: F10.129 Alcohol abuse with intoxication, unspecified (principal); I10 Essential (primary) hypertension; Y90.0 Blood alcohol level of less than 20 mg/100 ml
CPT/HCPCS: 80053; 81000; 83690; 84703; 85025; 99284; G0480; 36415; 80320